=== PATIENT | male | born 1950 | race Caucasian/White ===

== ENCOUNTER 2018-06-23 13:24 | Outpatient (REF) | payer MEDICARE, BC, SELFPAY ==
[2018-06-23 21:35] LABS: COMMENT (LAB VIEW ONLY) 71.05 mg/dL; Microalb ug/mg Crea 14.9 ug/mg Cr
== END 2018-06-23 13:44 ==
LOC: NCHCN 13:24
PROVIDERS: Visit Provider Internal Medicine
DX: E11.9 Type 2 diabetes mellitus without complications (principal)
CPT/HCPCS: 82043; 82570

== ENCOUNTER 2018-12-22 12:58 | Outpatient (REF) | payer MEDICARE, BC, SELFPAY ==
[2018-12-23 12:11] LABS: Anion Gap 6.3 mmol/L (3-11); BUN 22 mg/dL (7-18); CO2 30.7 mmol/L (21.0-32.0); CREATININE 0.97 mg/dL (0.70-1.30); Calcium 9.3 mg/dL (8.5-10.1); Chloride 102 mmol/L (98-107); Glucose 147 mg/dL (70-100); Potassium 4.4 mmol/L (3.5-5.1); Sodium 139 mmol/L (136-145)
== END 2018-12-22 13:18 ==
LOC: NCHCN 12:58
PROVIDERS: Visit Provider Internal Medicine
DX: E11.9 Type 2 diabetes mellitus without complications (principal)
CPT/HCPCS: 80048

== ENCOUNTER 2019-06-23 09:19 | Outpatient (REF) | payer MEDICARE, BC, SELFPAY ==
[2019-06-23 21:03] LABS: COMMENT (LAB VIEW ONLY) 127.44 mg/dL; Microalb ug/mg Crea 8.9 ug/mg Cr
== END 2019-06-23 09:39 ==
LOC: NCHCN 09:19
PROVIDERS: Visit Provider Internal Medicine
DX: E11.9 Type 2 diabetes mellitus without complications (principal)
CPT/HCPCS: 82043; 82570

== ENCOUNTER 2019-12-19 08:03 | Outpatient (REF) | payer MEDICARE, BC, SELFPAY ==
[2019-12-19 20:52] LABS: Anion Gap 7.8 mmol/L (3-11); BUN 24 mg/dL (7-18); CO2 30.2 mmol/L (21.0-32.0); CREATININE 1.02 mg/dL (0.70-1.30); Calcium 9.5 mg/dL (8.5-10.1); Chloride 100 mmol/L (98-107); Glucose 183 mg/dL (74-106); Sodium 138 mmol/L (136-145)
[2019-12-19 21:31] LABS: Calculated LDL 56 mg/dL (<100); Cholesterol 132 mg/dL (<200); HDL Cholesterol 50 mg/dL (40-60); Triglyceride 131 mg/dL (<150)
== END 2019-12-19 08:23 ==
LOC: NCHCN 08:03
PROVIDERS: Visit Provider Internal Medicine
DX: E11.9 Type 2 diabetes mellitus without complications (principal); I25.10 Atherosclerotic heart disease of native coronary artery without angina pectoris
CPT/HCPCS: 80048; 80061; 83036

== ENCOUNTER 2020-11-29 12:59 | Outpatient (REF) | payer MEDICARE, BC, SELFPAY ==
[2020-11-29 14:21] LABS: COMMENT (LAB VIEW ONLY) 76.38 mg/dL; Microalb ug/mg Crea 14.1 ug/mg Cr
[2020-11-29 15:14] LABS: ALT 43 U/L (16-63); AST 21 U/L (15-37); Albumin 4.1 g/dL (3.4-5.0); Alkaline Phosphatase 62 U/L (46-116); Anion Gap 10.6 mmol/L (3-11); BUN 21 mg/dL (7-18); Bilirubin, Total 0.7 mg/dL (0.2-1.0); CO2 28.4 mmol/L (21.0-32.0); Calcium 9.6 mg/dL (8.5-10.1); Calculated LDL 74 mg/dL (<100); Chloride 101 mmol/L (98-107); Cholesterol 144 mg/dL (<200); Glucose 141 mg/dL (74-106); HDL Cholesterol 47 mg/dL (40-60); Potassium 4.3 mmol/L (3.5-5.1); Sodium 140 mmol/L (136-145); Total Protein 7.4 g/dL (6.4-8.2); Triglyceride 119 mg/dL (<150)
[2020-11-29 15:29] LABS: Hemoglobin A1C 7.7 % (<5.7)
[2020-12-02 11:52] LABS: PSA, Screening 0.4 ng/mL (0.0-4.5)
== END 2020-11-29 13:00 | disposition home or self-care (01) ==
LOC: NCHCN 12:59
PROVIDERS: Visit Provider Internal Medicine
DX: E11.9 Type 2 diabetes mellitus without complications (principal); I10 Essential (primary) hypertension; Z12.5 Encounter for screening for malignant neoplasm of prostate; E78.5 Hyperlipidemia, unspecified
CPT/HCPCS: 80053; 80061; 84153; 82043; 82570; 83036

== ENCOUNTER 2023-01-18 16:55 | Outpatient (REF) | payer MEDICARE, BC, SELFPAY ==
--- OUTSIDE RECORDS SUMMARY | 2023-01-18 17:00 | XMS_ITS | Continuity of Care Document ---
Author Name Unknown Organization [facility] Address [address] [place] [address] Care Team Providers Care Top Steep Tender Name Role Phone Elle Venegas Primary Care Physician [phone] Encounter [facility]_AR Date(s): 05/07/22 - 05/07/22 [facility] [address] [place] [address] Discharge Disposition: Home or Self Care Attending Physician: Elle Venegas MD Admitting Physician: Elle Venegas MD Referring Physician: Elle Venegas MD Results Laboratory List Name Date Comprehensive Metabolic Panel 05/07/22 Most recent to oldest [Reference Range]: 1 BUN [7-18 mg/dL] 17 mg/dL (05/07/22 1:20 PM) Glucose Level [74-106 mg/dL] 113 mg/dL *HI* (05/07/22 1:20 PM) Potassium Level [3.5-5.1 mmol/L] 3.8 mmo l/L (05/07/22 1:20 PM) AST [15-37 unit/L] 31 unit/L (05/07/22 1:20 PM) ALT [14-59 unit/L] 34 unit/L (05/07/22 1:20 PM) Sodium Level [136-145 mmol/L] 139 mmol/L (05/07/22 1:20 PM) Calcium Level [8.5-10.1 mg/dL] 9.2 mg/dL (05/07/22 1:20 PM) Albumin Level [3.4-5.0 g/dL] 3.8 g/dL (05/07/22 1:20 PM) Protein Total [6.4-8.2 g/dL] 7.5 g/dL (05/07/22 1:20 PM) Bilirubin Total [0.2-1.0 mg/dL] 0.8 mg/d L (05/07/22 1:20 PM) Alk Phos [46-146 unit/L] 48 unit/L (05/07/22 1:20 PM) CO2 [21-32 mmol/L] 29 mmol/L (05/07/22 1:20 PM) eGFR Non-AA [>=60] 80 (05/07/22 1:20 PM) eGFR AA [>=60] 80 (05/07/22 1:20 PM) Chloride Level [98-107 mmol/L] 103 mmol/ L (05/07/22 1:20 PM) Creatinine Level [0.70-1.30 mg/dL] 1.01 mg/dL (05/07/22 1:20 PM) Anion Gap [8-16 mmol/L] 8 mmol/L (05/07/22 1:20 PM) Social History Social History Type Response Sex Male Patient Care team information Personnel Name: Elle Venegas MD Address: Address: [address]
--- OUTSIDE RECORDS SUMMARY | 2023-01-18 17:00 | XMS_ITS | Continuity of Care Document ---
Author Name Unknown Organization [facility] Address [address] [place] [address] Care Team Providers Care Mobile Application Tester Name Role Phone Elle Venegas Primary Care Physician Encounter [facility]_OR Date(s): 07/29/22 - 07/29/22 [facility] [address] [place] [address] Discharge Disposition: Home or Self Care Attending Physician: Merari Doherty MD Admitting Physician: Merari Doherty MD Referring Physician: Merari Doherty MD Results Laboratory List Name Date Hemoglobin A1c 07/29/22 Most recent to oldest [Reference Range]: 1 Hemoglobin A1c [4.0-6.0 %] 6.5 % *HI* (07/29/22 12:33 PM) Social History Social History Type Response Sex Male Patient Care team information Personnel Name: Elle Venegas MD Address: Address: [address]
[2023-01-18 19:36] LABS: COMMENT (LAB VIEW ONLY) 101.99 mg/dL; Microalb ug/mg Crea 8.3 ug/mg Cr
== END 2023-01-18 16:56 | disposition home or self-care (01) ==
LOC: NCHCN 16:55
PROVIDERS: Visit Provider Internal Medicine
DX: E11.9 Type 2 diabetes mellitus without complications (principal)
CPT/HCPCS: 82043; 82570

== ENCOUNTER 2023-08-16 16:57 | Outpatient (REF) | payer MEDICARE, BC, SELFPAY ==
--- OUTSIDE RECORDS SUMMARY | 2023-08-16 17:00 | XMS_ITS | Continuity of Care Document ---
Author Name Unknown Organization [facility] Address [address] [place] [address] Care Team Providers Care Mine Motor Operator Name Role Phone Elle Venegas Primary Care Physician [phone] Encounter [facility]_RI Date(s): 03/22/23 - 03/22/23 [facility] [address] [place] [address] Discharge Disposition: Home or Self Care Attending Physician: Pilar Urena NP Admitting Physician: Pilar Urena NP Referring Physician: Pilar Urena NP Social History Social History Type Response Sex Male Patient Care team information Care Team Personnel Name: Elle Venegas MD Position: No Access Member Role: Primary Care Physician Address: Address: [address] Care Team Related Persons Name: HILARY AMANDA Address: Home
[2023-08-16 21:49] LABS: Abs Immature Grans 0.07 10^3/uL (0.0-0.06); Absolute Basophil Count 0.07 10^3/uL (0.0-0.2); Absolute Eosinophil Count 0.68 10^3/uL (0.0-0.7); Absolute Lymphocyte Count 2.17 10^3/uL (1.2-3.4); Absolute Monocyte Count 0.85 10^3/uL (0.1-0.8); Basophils % 0.8; Eosinophils % 7.8; HCT 43.5 % (40.0-50.0); HGB 14.5 g/dL (13.5-17.5); Immature Grans % 0.8; Lymphocytes % 24.8; MCH 31.1 pg (27.0-33.0); MCHC 33.3 % (32.0-36.0); MCV 93 fL (80-95); Monocytes % 9.7; Neutrophils % 56.1; Platelet Count 177 10^3/uL (130-400); RBC 4.66 10^6/uL (4.36-5.78); RDW 12.4 % (11.8-14.1); RDW-SD 42.2 fL; WBC 8.74 10^3/uL (4.4-10.8)
[2023-08-16 22:05] LABS: ALT 30 U/L (16-63); AST 22 U/L (15-37); Alkaline Phosphatase 46 U/L (46-116); Anion Gap 7.3 mmol/L (3-11); BUN 20 mg/dL (7-18); Bilirubin, Total 0.5 mg/dL (0.2-1.0); CO2 31.7 mmol/L (21.0-32.0); CREATININE 1.1 mg/dL (0.70-1.30); Calcium 9.9 mg/dL (8.5-10.1); Chloride 102 mmol/L (98-107); Estimated GFR 71.77 (mL/min/1.73m2); Glucose 160 mg/dL (74-106); Sodium 141 mmol/L (136-145); Total Protein 7.7 g/dL (6.4-8.2)
== END 2023-08-16 16:58 | disposition home or self-care (01) ==
LOC: NCHCN 16:57
PROVIDERS: PCP Internal Medicine; Visit Provider Internal Medicine
DX: E11.9 Type 2 diabetes mellitus without complications (principal)
CPT/HCPCS: 80053; 85025